=== PATIENT | female | born 1990 | race Caucasian/White ===

== ENCOUNTER 2016-07-20 16:58 | Emergency (ER) | payer BC ==
[2016-07-20] MEDS ORDERED: Ketorolac INJ* 30 MG/ML 1 ML VIAL IV PUSH ONE (18:15)
[2016-07-20] MEDS ORDERED: NS 0.9% 1000 ML* 1,000 ML IV ONE (18:16)
[2016-07-20 19:24] LABS: Hematocrit 42 % (35-47); Hemoglobin 14.2 g/dl (12.0-16.0); Mean Corpuscular HGB Conc 34 g/dl (31-36); Mean Corpuscular Hemoglobin 31 pg (27-31); Mean Corpuscular Volume 93 fL (80-97); Mean Platelet Volume 10 um3 (7.4-10.4); Red Blood Count 4.56 10^6/ul (4.0-5.4); Red Cell Distribution Width 13 % (10.5-15); White Blood Count 8.5 10^3/ul (3.5-10.8)
[2016-07-20 19:35] LABS: Calcium 9.8 mg/dL (8.6-10.3); EGFR Non-African American 89.4 (>60); Potassium 3.9 mmol/L (3.5-5.0)
[2016-07-20 21:03] VITALS: BP 124/67
--- NOTE | 2016-07-21 15:42 | ED ---
Wilfredo Pace Auryana, scribed for Deandre Wang MD on 07/20/16 at 1951 . Headache - HPI Summary HPI Summary: 25 year old female presents with a migraine starting 03:00PM today. The migraine is located at the crown of the head with intermittent stabbing pain at the left sided confucianist. She also has nausea, vomiting, photophobia, and parasthesias - radiating up the bilateral arms. She denies any blurry vision, fever, sweats, chills, head injuries. She reports that her menstrual cycle has been normal. She reports that she had a good nights sleep and also took a nap today - no improvement. Patient reports that she was seen at her eye doctor who noticed a hemorrhage on the whites of right eye- stated it was a slow bleed and recommended blood work to dx cause. She has had prior episodes of migraines but does not normally have these symptoms. PMHx is significant for migraines ( Topiramate 100mg PO daily -Dr. Kelley). SHx is significant for occasional alcohol but denies any tobacco or drug use. - History Of Current Complaint Chief Complaint: EDHeadache Stated Complaint: MIGRAINE /VOMITING/NUMBNESS IN BOTH HANDS Time Seen by Provider: 07/20/16 17:56 Hx Obtained From: Patient Hx Last Menstrual Period: 10/30/15 Onset/Duration: Sudden Onset, Started hours ago - 03:00 PM, Still Present Initially Headache Was: Moderate Currently Pain Is: Moderate Timing: Constant Character: Migraine Location of Headache: Frontal - around the crown, Temporal - sharp stabbing at the left temporal Aggravating Factor: Bright Lights Associated Signs And Symptoms: Nausea, Vomiting, Other (Noted In Comments) - photophobia, parasthesia Related History: Similar Episode/DX As: - see HPI - Allergies/Home Medications Allergies/Adverse Reactions: Allergies Allergy/AdvReac Type Severity Reaction Status Date / Time No Known Allergies Allergy Verified 07/20/16 17:04 PMH/Surg Hx/FS Hx/Imm Hx Endocrine/Hematology History: Denies: Hx Diabetes, Hx Thyroid Disease Cardiovascular History: Denies: Hx Hypertension Respiratory History: Denies: Hx Asthma, Hx Chronic Obstructive Pulmonary Disease (COPD) GI History: Denies: Hx Ulcer - Surgical History Surgery Procedure, Year, and Place: mouth Infectious Disease History: No Infectious Disease History: Denies: Hx Hepatitis, Hx Human Immunodeficiency Virus (HIV), Traveled Outside the [place] in Last 30 Days - Family History Family History: Denies FHx strokes - Social History Alcohol Use: Occasionally Substance Use Type: Reports: None Smoking Status (MU): Never Smoked Tobacco Review of Systems Constitutional: Negative Negative: Fever, Chills Positive: Photophobia. Negative: Erythema ENT: Negative Negative: Sore Throat Cardiovascular: Negative Negative: Chest Pain Respiratory: Negative Negative: Shortness Of Breath, Cough Positive: Vomiting, Nausea. Negative: Abdominal Pain Genitourinary: Negative Negative: dysuria, hematuria Musculoskeletal: Negative Negative: Myalgia, Edema Skin: Negative Negative: Rash Neurological: Other - no dizziness Positive: Headache, Paresthesia Psychological: Normal All Other Systems Reviewed And Are Negative: Yes Physical Exam - Summary Physical Exam Summary: Constitutional: Well-developed, Well-nourished, Alert. (-) Distressed Skin: Warm, Dry HENT: Normocephalic; Atraumatic Eyes: Conjunctiva normal. photophobic. Neck: Musculoskeletal ROM normal neck. (-) JVD, (-) Stridor, (-) Tracheal deviation. (+) anterior cervical chain enlarged lymph nodes, (-) meningismus Cardio: Rhythm regular, rate normal, Heart sounds normal; Intact distal pulses; The pedal pulses are 2+ and symmetric. Radial pulses are 2+ and symmetric. (-) Murmur Pulmonary/Chest wall: Effort normal. (-) Respiratory distress, (-) Wheezes, (-) Rales Abd: Soft, (-) Tenderness, (-) Distension, (-) Guarding, (-) Rebound Musculoskeletal: (-) Edema Lymph: (-) Cervical adenopathy Neuro: Alert, Oriented x3 Psych: Mood and affect Normal Triage Information Reviewed: Yes Vital Signs On Initial Exam: Initial Vitals Temp Pulse Resp BP Pulse Ox 98.3 F 77 18 113/69 100 07/20/16 17:04 07/20/16 17:04 07/20/16 17:04 07/20/16 17:04 07/20/16 17:04 Vital Signs Reviewed: Yes Diagnostics - Vital Signs Vital Signs Temp Pulse Resp BP Pulse Ox 07/20/16 17:04 98.3 F 77 18 113/69 100 - Laboratory Result Diagrams: 07/20/16 19:07 07/20/16 19:07 Lab Statement: Any lab studies that have been ordered have been reviewed, and results considered in the medical decision making process. Re-Evaluation - Re-Evaluation First Eval Re-Evaluation Time: 20:32 Change: Improved Comment: Headache is now a 2/10. Pt declines additional medications and requests discharge. Headache Course/Dx - Course Assessment/Plan: 25 year old female presents with a migraine starting 03:00PM today. The migraine is located at the crown of the head with intermittent stabbing pain at the left sided confucianist. She also has nausea, vomiting, photophobia, and parasthesias - radiating up the bilateral arms. She denies any blurry vision, fever, sweats, chills, head injuries. She has had prior episodes of migraines but does not normally have these symptoms. PMHx is significant for migraines (Topiramate 100mg PO daily -Dr. Kelley). Physical exam - photophobia but otherwise normal. Blood work WNL. On re-evaluation, headache has reduced to a 2/10 and pt requests discharge. Pt declines additional pain medication in the ED. Prescribes Toradol. - Diagnoses Differential Diagnosis/HQI/PQRI: Migraine, Tension Headache Provider Diagnoses: Migraine Discharge - Discharge Plan Condition: Stable Disposition: HOME Prescriptions: Ketorolac TAB * [Toradol TAB *] 10 mg PO Q6H #12 tab Patient Education Materials: Migraine Headache (ED) Forms: *Work Release Referrals: Taco Abrams MD [Primary Care Provider] - 3 Days The documentation as recorded by the Wilfredo melara Auryana accurately reflects the service I personally performed and the decisions made by , Deandre Wang MD.
== END 2016-07-20 20:59 | disposition home or self-care (01) ==
LOC: ED 16:58
DX: G43.909 Migraine, unspecified, not intractable, without status migrainosus (principal); R11.2 Nausea with vomiting, unspecified; H53.149 Visual discomfort, unspecified
CPT/HCPCS: 36415; 80048; 85027; 99282; J1885

== ENCOUNTER 2017-06-15 11:10 | Emergency (ER) | payer BC ==
[2017-06-15 12:16] VITALS: BP 121/80
--- NOTE | 2017-06-15 12:56 | UC ---
Lower Extremity/Ankle HPI - HPI Summary HPI Summary: This is a 26 yo female with c/o R ankle pain. She rolled her ankle ~6 weeks ago and it was swollen and bruised for several days, but did not get XRs at that time. She notes persistent pain and swelling since that time. Able to ambulate without a limp, no new injury. - History of Current Complaint Chief Complaint: UCLowerExtremity Stated Complaint: ANKLE INJURY Hx Last Menstrual Period: 05/25/17 Pain Intensity: 5 - Allergies/Home Medications Allergies/Adverse Reactions: Allergies Allergy/AdvReac Type Severity Reaction Status Date / Time No Known Allergies Allergy Verified 06/15/17 12:15 Home Medications: Home Medications SUMAtriptan TAB* [Imitrex TAB*] 25 mg PO SEE INSTRUCTIONS 06/15/17 [History Confirmed 06/15/17] PMH/Surg Hx/FS Hx/Imm Hx Previously Healthy: Yes - Surgical History Surgical History: Yes Surgery Procedure, Year, and Place: mouth - Family History Known Family History: Positive: None Family History: Denies FHx strokes - Social History Alcohol Use: Weekly Substance Use Type: None Smoking Status (MU): Never Smoked Tobacco Review of Systems Constitutional: Negative Skin: Negative Eyes: Negative ENT: Negative Respiratory: Negative Cardiovascular: Negative Gastrointestinal: Negative Genitourinary: Negative Motor: Negative Neurovascular: Negative Musculoskeletal: Arthralgia - ankle pain Neurological: Negative Psychological: Negative Is Patient Immunocompromised?: No All Other Systems Reviewed And Are Negative: Yes Physical Exam Triage Information Reviewed: Yes Appearance: Well-Appearing Vital Signs: Initial Vital Signs Temp 98.6 F 06/15/17 12:12 Pulse 79 06/15/17 12:12 Resp 18 06/15/17 12:12 BP 121/80 06/15/17 12:12 Pulse Ox 100 06/15/17 12:12 ENT Exam: Normal Neck exam: Normal Respiratory Exam: Normal Cardiovascular Exam: Normal Abdominal Exam: Normal Musculoskeletal: Positive: Other: - ROM intact, non-TTP, R ankle effusion Neurological Exam: Normal Psychological Exam: Normal Skin Exam: Normal Diagnostics - Laboratory Diagnostic Studies Completed/Ordered: XR ankle - avulsion fx of the medial mallelous Lower Extremity Course/Dx - Course Course Of Treatment: Otherwise healthy 26 yo female with an ankle injury ~6 weeks ago. XR demonstrates medial mallelous fx. Patient declined immobilization. Referred to orthopedic surgery. - Differential Dx/Diagnosis Differential Diagnosis/HQI/PQRI: Contusion, Dislocation, Fracture (Closed) Provider Diagnoses: 1. R ankle fx Discharge - Sign-Out/Discharge Documenting (check all that apply): Discharge/Admit/Transfer - Discharge Plan Condition: Stable Disposition: HOME Patient Education Materials: Ankle Fracture (ED) Referrals: Kriss Echols [Primary Care Provider] - Eden Raymond MD [Medical Doctor] - 1 Week Additional Instructions: Instructions: 1. Please call the office of Dr Raymond for an appointment tomorrow morning - Billing Disposition and Condition Condition: STABLE Disposition: HOME
--- NOTE | 2017-06-15 13:37 | RAD ---
INDICATION: Right ankle injury. TECHNIQUE: 3 views of the right ankle were obtained. FINDINGS: There is mild diffuse soft tissue swelling. The bones are normal alignment. There is a small linear 2 mm bony density adjacent to the tip of the medial malleolus most consistent with a small avulsion fracture fragment. No other fractures are seen. IMPRESSION: SMALL AVULSION FRACTURE FRAGMENT ARISING FROM THE TIP OF THE MEDIAL MALLEOLUS.
== END 2017-06-15 13:49 | disposition home or self-care (01) ==
LOC: UCEAST 11:10
DX: S82.54XA Nondisplaced fracture of medial malleolus of right tibia, initial encounter for closed fracture (principal); X58.XXXA Exposure to other specified factors, initial encounter; Y93.9 Activity, unspecified; Y92.9 Unspecified place or not applicable
CPT/HCPCS: 99211; G0463

== ENCOUNTER 2017-08-17 11:25 | Emergency (ER) | payer BC ==
[2017-08-17 11:40] VITALS: BP 144/97
--- NOTE | 2017-08-17 16:01 | UC ---
Chris Pace Natalie, scribed for Edward Jerome MD on 08/17/17 at 1358 . Respiratory Complaint HPI - HPI Summary HPI Summary: The patient is a 26 y/o F presenting to [facility] c/o fevers, chills, and sore throat starting four days ago. She states that it hurts to swallow, and the pain has been worsening since onset. Her fever spikes everyday, and she has been taking Tylenol, but her fever is still 101+F. The pain is rated 4/10 in severity. She additionally c/o right ear pain and a headache. She denies constipation, diarrhea, and abd pain. She had mononucleosis in 2009. She states that she felt similar to this, but was much more fatigued then. No one else is sick in the house. She takes Topamax and Imitrex for migraines. No allergies. - History of Current Complaint Chief Complaint: UCRespiratory Stated Complaint: FEVER, AND SORE THROAT Time Seen by Provider: 08/17/17 11:40 Hx Obtained From: Patient Hx Last Menstrual Period: now Onset/Duration: Sudden Onset, Lasting Days, Still Present, Worse Since - onset Severity Initially: Mild Severity Currently: Moderate Pain Intensity: 4 Pain Scale Used: 0-10 Numeric Aggravating Factors: Nothing Alleviating Factors: Nothing Associated Signs And Symptoms: Positive: Fever, Chills - Allergies/Home Medications Allergies/Adverse Reactions: Allergies Allergy/AdvReac Type Severity Reaction Status Date / Time No Known Allergies Allergy Verified 08/17/17 11:40 PMH/Surg Hx/FS Hx/Imm Hx Previously Healthy: Yes Other Endocrine History: negative Other Cardiovascular History: negative Other Respiratory History: POSITIVE: mononucleosis in 2009 Other GI/ History: negative Other Neurological History: POSITIVE: chronic migraines Other Psychological History: negative Other Cancer History: negative - Surgical History Surgical History: Yes Surgery Procedure, Year, and Place: mouth - Family History Known Family History: Negative: Cardiac Disease, Hypertension, Diabetes Family History: Denies FHx strokes - Social History Alcohol Use: Occasionally Substance Use Type: None Smoking Status (MU): Never Smoked Tobacco Review of Systems Constitutional: Fever, Chills Skin: Negative Eyes: Negative ENT: Sore Throat, Ear Ache - right Respiratory: Negative Cardiovascular: Negative Gastrointestinal: Negative, Other - NEGATIVE: diarrhea, constipation, abd pain Genitourinary: Negative Motor: Negative Neurovascular: Negative Musculoskeletal: Negative Neurological: Headache Is Patient Immunocompromised?: No All Other Systems Reviewed And Are Negative: Yes Physical Exam - Summary Physical Exam Summary: Appearance: Well-Appearing, No Pain Distress, Well-Nourished Eyes: conjunctiva clear, no discharge ENT: Hearing grossly normal, no muffled/hoarse voice, tonsil on the right side enlarged, pharyngeal exudates present, ears are normal, anterior lymph nodes swollen and tender, no swelling or tenderness in the posterior lymph nodes Neck: Normal, Supple Respiratory/Lung Sounds: Lungs clear, Normal breath sounds, No respiratory distress, No accessory muscle use Cardiovascular: RRR, No murmur Abdomen: Nontender, Soft, no guarding, not distended Bowel Sounds: Present Musculoskeletal: Normal Neurological: Alert, muscle tone normal Psychiatric:Normal, age appropriate behavior Skin: Normal, Warm, Dry, Normal color Triage Information Reviewed: Yes Vital Signs: Initial Vital Signs Temp 101.4 F 08/17/17 11:37 Pulse 111 08/17/17 11:37 Resp 12 08/17/17 11:37 BP 144/97 08/17/17 11:37 Pulse Ox 100 08/17/17 11:37 Vital Signs Reviewed: Yes UC Diagnostic Evaluation - Laboratory O2 Sat by Pulse Oximetry: 100 Respiratory Course/Dx - Course Course Of Treatment: The patient is a 26 y/o F presenting to [facility] c/o fever (101 +F), chills, sore throat, right ear pain, and headache starting four days ago and worsening since onset. The fever has not been relieved by Tylenol. She denies diarrhea, constipation, and abd pain. She takes Topamax and Imitrex for migraines. She had mono in 2009 with similar symptoms, bue she was more fatigued then. Medications reviewed. Allergies noted. In the [facility], the strep test was negative. A monospot was ordered, and results will be obtained in the morning for further care. If psotive for mono, was advised to hold off contact sports for 4 weeks. If negative and symptoms worsening , can consider antibiotics. Patient will be discharged home with instructions for viral upper respiratory infection. She is advised to follow up with her PCP in one week. Patient is agreeable with this plan. - Differential Dx/Diagnosis Provider Diagnoses: upper respiratory infection. MOnonucleosis Discharge - Sign-Out/Discharge Documenting (check all that apply): Discharge/Admit/Transfer - Pt will be discharged home. - Discharge Plan Condition: Stable Disposition: HOME Patient Education Materials: Mononucleosis (ED), Strep Throat (ED), Upper Respiratory Infection (ED) Referrals: Kriss Echols [Primary Care Provider] - 1 Week Additional Instructions: Follow up with your primary care doctor in 1 week. Lab test results will be available tomorrow. If tested positive for mono, hold off any contact sports for next 4 weeks. Throat lozenges for comfort and tylenol for fever. . Return to Urgent care / ER if symptoms get worse. - Billing Disposition and Condition Condition: STABLE Disposition: Home The documentation as recorded by the Chris melara Natalie accurately reflects the service I personally performed and the decisions made by me, Edward Jerome MD.
--- NOTE | 2017-08-18 16:31 | UC ---
- Progress Note Progress Note: Bosque negative and strep negative. Spoke with Dr. Jerome, he would like pt to start Amoxicillin. Will send 500mg BID for 10 days and f/u if not improving. Discharge - Sign-Out/Discharge Documenting (check all that apply): Post-Discharge Follow Up - Discharge Plan Condition: Stable Disposition: HOME Prescriptions: Amoxicillin PO (*) [Amoxicillin 500 MG CAP*] 500 mg PO Q12H #20 cap Patient Education Materials: Mononucleosis (ED), Strep Throat (ED), Upper Respiratory Infection (ED) Referrals: Kriss Echols [Primary Care Provider] - 1 Week Additional Instructions: Follow up with your primary care doctor in 1 week. Lab test results will be available tomorrow. If tested positive for mono, hold off any contact sports for next 4 weeks. Throat lozenges for comfort and tylenol for fever. . Return to Urgent care / ER if symptoms get worse. - Billing Disposition and Condition Condition: STABLE Disposition: Home
== END 2017-08-17 13:16 | disposition home or self-care (01) ==
LOC: UCEAST 11:25
DX: J06.9 Acute upper respiratory infection, unspecified (principal); B27.90 Infectious mononucleosis, unspecified without complication
CPT/HCPCS: 36415; 86308; 87651; 99211; G0463